=== PATIENT | female | born 1955 | race Caucasian/White ===

== ENCOUNTER 2018-03-28 09:54 | Emergency (ER) | payer MEDICARE, SELFPAY | END 2018-03-28 09:55 | PROVIDERS: Emergency Provider Student in an Organized Health Care Education/Training Program; Visit Provider Student in an Organized Health Care Education/Training Program | DX: Z53.29 Procedure and treatment not carried out because of patient's decision for other reasons (principal) ==

== ENCOUNTER 2018-04-03 08:08 | Outpatient (CLI) | payer MEDICARE, SELFPAY ==
--- NOTE | 2018-04-03 08:17 | DI.REPORT_ITS ---
SYMPTOM/DIAGNOSIS: CLOSED FX PROXIMAL PHALANX TOE, S92.911A RIGHT FOOT: Comparison is made with 18 March 2018. There has been no significant change in the previously noted fracture of the proximal phalanx of the 5th toe.
== END 2018-04-03 08:09 ==
PROVIDERS: Visit Provider Podiatrist Foot & Ankle Surgery
DX: S92.911D Unspecified fracture of right toe(s), subsequent encounter for fracture with routine healing (principal)
CPT/HCPCS: 73630

== ENCOUNTER 2019-10-23 14:21 | Outpatient (CLI) | payer MEDICARE, SELFPAY ==
[2019-10-23 17:00] LABS: TSH 1.04 uIU/mL (0.36-3.74)
== END 2019-10-23 14:41 ==
PROVIDERS: Visit Provider Family Medicine
DX: I10 Essential (primary) hypertension (principal)
CPT/HCPCS: 36415; 80048; 84443

== ENCOUNTER 2021-09-24 23:33 | Emergency (ER) | payer MEDICARE, SELFPAY ==
[2021-09-24 23:43] VITALS: BP 144/78; PULSE 73; RESP 16; TEMP 36.5; O2SAT 97
--- NOTE | 2021-09-24 23:45 | DI.RAD_ITS ---
Exam(s) XR FOOT LT COMPLETE EXAM: XR FOOT LT COMPLETE CLINICAL HISTORY: tenderness over 1st and 2nd metatarsals. TECHNIQUE: 2D digital imaging was performed. COMPARISON: No exams were available for comparison FINDINGS: No evidence of fracture or diastasis of the Lisfranc joint. Bone density is normal. No osseous lesi ons nor erosions. Soft tissue swelling is seen dorsally over the metatarsals but no fractures eviden t at this time. IMPRESSION: No fracture. No radiopaque foreign body. DATA REPOSITORY: RADIATION DOSE DELIVERED:
[2021-09-25] MEDS: Acetaminophen 500 MG TAB 1000 MG PO
--- NOTE | 2021-09-25 00:11 | DI.VRAD_ITS ---
PROCEDURE INFORMATION: Exam: XR Left Foot Exam date and time: 09/24/2021 11:49 PM Age: 66 years old Clinical indication: Pain; Foot; Left; Patient HX: Tenderness over 1st and 2nd metatarsals after. Ran into table TECHNIQUE: Imaging protocol: XR Left foot. Views: 3 or more views. COMPARISON: No relevant prior studies available. FINDINGS: Bones/joints: No evidence of fracture. Negative for dislocation. Negative for bony erosion or destructive change. Soft tissues: Soft tissue swelling is noted in the forefoot. Negative for soft tissue air. No foreign bodies observed. IMPRESSION: No acute osseous abnormality. If symptoms persist, follow-up imaging advised. Dictated and Authenticated by: Joselito Stout MD. Ordering:EARLE Schuster MD
--- NOTE | 2021-09-25 00:12 | W.ED.GENAD ---
Discharge Plan Disposition Patient Disposition: HOME Condition: Good Discharge Details Clinical Impression: Contusion of foot, left Primary Care Provider: Henny Villatoro ED Provider: Landen Snider Home Meds and New Rx's Prescriptions: Continued gabapentin [Neurontin] 600 MG tablet 1,800 mg PO HS RF: 0 methylphenidate HCl [Ritalin] 20 MG tablet 20 mg PO TID RF: 0 metoprolol succinate 25 MG tablet extended release 24 hr 25 mg PO DAILY RF: 0 ferrous sulfate 325 MG tablet,delayed release (DR/EC) 325 mg PO DAILY RF: 0 multivitamin 1 EACH capsule 1 ea PO DAILY RF: 0 vitamin B complex 1 EACH capsule 1 ea PO DAILY RF: 0 pramipexole 1 MG tablet 2 mg PO HS RF: 0 escitalopram oxalate [Lexapro] 20 MG tablet 20 mg PO DAILY RF: 0 metformin 500 MG tablet 500 mg PO BID RF: 0 modafinil [Provigil] 200 MG tablet 300 mg PO DAILY RF: 0 albuterol sulfate [Ventolin HFA] 8 GM HFA aerosol inhaler 2 puff Inhalation Q4H PRN PRNRF: 0 fluticasone propionate 16 GM spray,suspension 1 spray NS DAILY RF: 0 cholecalciferol (vitamin D3) 5,000 UNIT capsule 5,000 unit PO DAILY RF: 0 aripiprazole [Abilify] 30 MG tablet 30 mg PO HS RF: 0 calcium citrate-vitamin D3 [Citracal + D Maximum] 1 EACH tablet 1 ea PO TID RF: 0 Cyanocobalamin (Vitamin B-12) [Vitamin B-12] 1,000 MCG Capsule 1,000 mcg PO DAILY RF: 0 lorazepam 1 MG tablet 1 mg PO HS PRN PRNRF: 0 Discharge Instructions Instructions: Foot Contusion (ED) Additional Instructions: At this time the x-ray shows no evidence of fracture. You do have a notable contusion on your foot though. Please keep it elevated, apply ice throughout the day. Take Tylenol as needed for pain. Use the crutches to stay off your foot for the next 2 to 3 days then gradually add pressure as needed. If your symptoms persist for more than 1 to 2 weeks you may require repeat imaging or evaluation of the foot itself. If you notice any worsening of your symptoms, or any new symptoms such as vomiting, diarrhea, fever, chills, shortness of breath, chest pain, numbness, weakness, or fainting , please return immediately to the emergency department for reevaluation. Please follow up with your primary care provider as soon as possible for reassessment and reevaluation. As always, it was a pleasure participating in your medical care today. Referrals: Henny Villatoro [Primary Care Provider] - Medical Decision Making This is a 66-year-old female with a past medical history of diabetes, gastric bypass, asthma, who presents today for evaluation of left foot pain. In the last hour the patient was walking through the dark house and hit her foot on furniture. Significant pain on the dorsum of her foot. She came in for further assessment. She admits to pain with ambulation and movement. She denies any numbness or tingling. She denies any other trauma. No other complaints at this time. Having for mid physical exam demonstrates mild swelling over the dorsum of the left foot primarily over the first and second metatarsal. No numbness or tingling. No deformity. Suspect bruise and contusion, with fracture less likely. Will get x-ray, give Tylenol, monitor closely and reassess. 12:23 AM Imaging has been read as negative per virtual radiology. No evidence of acute fracture. At this time I feel that the patient stable for discharge. We will give crutches and walking boot for notable contusion. Recommend Tylenol, ice, and reevaluation if symptoms persist greater than 1 to 2 weeks. At this time patient is stable for discharge. Discussed red flags for which to return. I have extensively reviewed the treatment plan and discharge instructions with the patient. I have addressed all patient concerns at this time. The patient was made aware of what symptoms to monitor for that would warrant a return to the emergency department. Discussed the plan with the patient, they demonstrate verbal understanding and agreement with our assessment and plan at this time. The documentation in this chart was dictated using [employer] dictation software. Please excuse any dictation errors. FINDINGS: Bones/joints: No evidence of fracture. Negative for dislocation. Negative for bony erosion or destructive change. Soft tissues: Soft tissue swelling is noted in the forefoot. Negative for soft tissue air. No foreign bodies observed. IMPRESSION: No acute osseous abnormality. If symptoms persist, follow-up imaging advised. Thank you for allowing us to participate in the care of your patient. Dictated and Authenticated by: Joselito Stout MD 09/25/2021 12:10 AM Eastern Time ([place] & [place]) HPI General Date/Time Provider Initiated Documentation: 09/24/21 23:46. HPI Narrative: This is a 66-year-old female with a past medical history of diabetes, gastric bypass, asthma, who presents today for evaluation of left foot pain. In the last hour the patient was walking through the dark house and hit her foot on furniture. Significant pain on the dorsum of her foot. She came in for further assessment. She admits to pain with ambulation and movement. She denies any numbness or tingling. She denies any other trauma. No other complaints at this time. Related Data Home Medications Medication Instructions Recorded Confirmed ferrous sulfate 325 mg PO DAILY 04/21/13 03/19/18 gabapentin [Neurontin] 1,800 mg PO HS 04/21/13 03/19/18 methylphenidate HCl [Ritalin] 20 mg PO TID 04/21/13 03/19/18 metoprolol succinate 25 mg PO DAILY 04/21/13 03/19/18 multivitamin 1 ea PO DAILY 04/21/13 03/19/18 vitamin B complex 1 ea PO DAILY 04/21/13 03/19/18 pramipexole 2 mg PO HS 09/06/14 03/19/18 escitalopram oxalate [Lexapro] 20 mg PO DAILY 02/21/16 03/19/18 Cyanocobalamin (Vitamin B-12) 1,000 mcg PO DAILY 08/22/17 03/19/18 [Vitamin B-12] albuterol sulfate [Ventolin HFA] 2 puff INHALATION Q4H PRN PRN 08/22/17 03/19/18 aripiprazole [Abilify] 30 mg PO HS 08/22/17 03/19/18 calcium citrate-vitamin D3 1 ea PO TID 08/22/17 03/19/18 [Citracal + D Maximum] cholecalciferol (vitamin D3) 5,000 unit PO DAILY 08/22/17 03/19/18 fluticasone propionate 1 spray NS DAILY 08/22/17 03/19/18 metformin 500 mg PO BID 08/22/17 03/19/18 modafinil [Provigil] 300 mg PO DAILY 08/22/17 03/19/18 lorazepam 1 mg PO HS PRN PRN 03/18/18 03/19/18 Allergies Allergy/AdvReac Type Severity Reaction Status Date / Time No Known Allergies Allergy Unverified 09/24/21 23:48 General Stated Complaint: Orthopedic NIKOLAY: 4 Review of Systems All systems reviewed & are unremarkable except as noted in HPI and below PFSH All Active Problems (Updated 09/25/21 @ 00:24 by Landen Snider DO) Contusion of foot, left (Acute) Social History Smoking/Tobacco Use Status: Never Smoking risk assessment performed?: Yes Drug use: Never Do you feel safe in your relationship?: Yes Exam Narrative Exam Narrative: 1.Const: Well-nourished, Well-developed, appearing stated age 2.Eyes: PERRL, no conjunctival injection, and symmetrical lids. 3.ENT: Atraumatic external nose and ears. Moist MM. Neck: Symmetric, trachea midline, No thyromegaly. 4.CVS: +S1/S2, No murmurs or gallops. Peripheral pulses 2+ and equal in all extremities. Brisk capillary refill in all extremities. 5.RESP: Unlabored respiratory effort. Clear to auscultation bilaterally. No wheezes rales or rhonchi 6.GI: Soft, Nontender/Nondistended, No hepatosplenomegaly. No guarding or rebound. 7.MSK: Left foot demonstrates mild swelling over the dorsum of the foot, particularly over the first and second metatarsals. Patient is able to flex and extend her toes well. Good sensation throughout. No tenderness over the ankle or lateral metatarsals. Mild evidence of bruising. No warmth to suggest infection. No crepitus to suggest necrotizing fasciitis. 8.Skin: Warm, Dry. No rashes or lesions. 9.Neuro: patient registrar II-XII grossly intact. Sensation grossly intact, no focal neurologic deficits. 10.Psych: (AAO) x3. Appropriate mood and affect Course Vital Signs Vital signs: Vital Signs Temperature 36.5 C 09/24/21 23:43 Pulse 73 09/24/21 23:43 Respiratory Rate 16 09/24/21 23:43 Blood Pressure 144/78 H 09/24/21 23:43 Pulse Oximetry 97 09/24/21 23:43 Temperature 36.5 C 09/24/21 23:43 Temperature Source Oral 09/24/21 23:43 Pulse 73 09/24/21 23:43 Respiratory Rate 16 09/24/21 23:43 Blood Pressure 144/78 H 09/24/21 23:43 Blood Pressure Position Sitting 09/24/21 23:43 Pulse Oximetry 97 09/24/21 23:43 Oxygen Delivery Method Room Air 09/24/21 23:43 Oxygen Flow Rate 0 09/24/21 23:43 Pain Level 8 09/24/21 23:43
== END 2021-09-25 00:41 | disposition home or self-care (01) ==
PROVIDERS: Emergency Provider Student in an Organized Health Care Education/Training Program; PCP Family Medicine
DX: S90.32XA Contusion of left foot, initial encounter (principal); W22.03XA Walked into furniture, initial encounter
CPT/HCPCS: 99283; 73630

== ENCOUNTER → 2021-11-30 14:05 | Outpatient (CLI) | payer MEDICARE, SELFPAY ==
--- NOTE | 2021-11-30 14:15 | DI.RAD_ITS ---
Exam(s) XR KNEE LT 3V AP,LAT,JAMAL EXAM: XR KNEE LT 3V AP,LAT,JAMAL CLINICAL HISTORY: LEFT KNEE PAIN M25.562 ? LIGAMENTOUS INJURY AND TIBIAL PLATEAU FX. TECHNIQUE: 2D digital imaging was performed. Three views. COMPARISON: No exams were available for comparison FINDINGS: BONES: No acute fracture is present. No bony destructive lesion is seen. JOINTS: There is spurring at the medial femoral condyle and medial tibial plateau as well as tibial s pines. There is mild spurring at the articular aspect of the patella. A small enthesophyte is seen on at the quadriceps insertion.. No joint effusion is seen. SOFT TISSUE: Normal. IMPRESSION: Degenerative changes greatest of the medial femoral tibial joint. No acute abnormality. DATA REPOSITORY: RADIATION DOSE DELIVERED:
--- NOTE | 2021-11-30 14:15 | DI.RAD_ITS ---
Exam(s) XR FOOT LT COMPLETE EXAM: XR FOOT LT COMPLETE CLINICAL HISTORY: PAIN LEFT FOOT M79.672 EVALUATE FOR LISFRANC INJURY. TECHNIQUE: 2D digital imaging was performed. COMPARISON: CR RIGHT FOOT COMPLETE from 04/03/2018 CR,XR XR FOOT LT COMPLETE from 09/25/2021 FINDINGS: BONES: There is a nondisplaced fracture extending transversely through the base of the 4th metatarsal . It does not extend to the articular surface. Which shows some healing when compared the previous exam. No additional fractures are seen. No bony destructive lesion is seen. JOINTS: No dislocation present. SOFT TISSUE: Dorsal soft tissue swelling. IMPRESSION: Subacute nondisplaced fracture at the base of the 4th metatarsal. DATA REPOSITORY: RADIATION DOSE DELIVERED:
== END ==
PROVIDERS: PCP Family Medicine; Visit Provider Physician Assistant Medical
DX: M79.672 Pain in left foot (principal); M25.562 Pain in left knee; M17.12 Unilateral primary osteoarthritis, left knee; S92.345A Nondisplaced fracture of fourth metatarsal bone, left foot, initial encounter for closed fracture; X58.XXXA Exposure to other specified factors, initial encounter
CPT/HCPCS: 73562; 73630

== ENCOUNTER 2021-12-15 00:03 | Outpatient (CLI) | payer MEDICARE, SELFPAY ==
--- NOTE | 2021-12-15 | DI.MRI_ITS ---
Exam(s) MR LOWER JOINT LT WO EXAM: MR LOWER JOINT LT WO CLINICAL HISTORY: OSTEOARTHRITIS LT KNEE, M17.12, LT KNEE PAIN, M25.562. TECHNIQUE: Multiplanar multisequence MRI was performed. COMPARISON: CR XR KNEE LT 3V AP,LAT,JAMAL from 11/30/2021 FINDINGS: BONES: There is no fracture or contusion pattern. JOINTS: Marked degenerative changes are seen in the medial femoral tibial joint with loss of the dipti cular cartilage, periarticular spurring and subchondral edema and cysts. There is thinning of the ar ticular cartilage at the inferior aspect of the patella. There is a small joint effusion. TENDONS: Extensor mechanism: Unremarkable. Medial retinaculum: Unremarkable. Lateral retinaculum: Unremarkable. Popliteus: Unremarkable. MUSCLES: Unremarkable. MENISCI: There is degeneration seen in the body of the medial meniscus. There is a tear of the poste rior horn of the medial meniscus. The lateral meniscus is unremarkable. SOFT TISSUES: Unremarkable. LIGAMENTS: Anterior Cruciate: Unremarkable. Posterior Cruciate: Unremarkable. Medial Collateral:Unremarkable. Lateral Collateral: There does appear to be a sprain of the lateral collateral ligament. OTHER: There is a small popliteal cyst. IMPRESSION: 1. Tear of the posterior horn of the medial meniscus. 2. Sprain of the lateral collateral ligament. 3. Degenerative changes predominantly involving the medial femoral tibial joint. 4. Small joint effusion. DATA REPOSITORY:
== END 2021-12-15 00:23 ==
PROVIDERS: PCP Family Medicine; Visit Provider Nurse Practitioner Family
DX: M25.562 Pain in left knee (principal); M17.12 Unilateral primary osteoarthritis, left knee; M25.462 Effusion, left knee; S83.242A Other tear of medial meniscus, current injury, left knee, initial encounter; S83.422A Sprain of lateral collateral ligament of left knee, initial encounter
CPT/HCPCS: 73721

== ENCOUNTER → 2021-12-28 14:16 | Outpatient (BNVA) | payer MEDICARE, SELFPAY | PROVIDERS: PCP Family Medicine; Referring Provider Family Medicine; Visit Provider Physician Assistant | DX: M17.12 Unilateral primary osteoarthritis, left knee (principal); S83.242A Other tear of medial meniscus, current injury, left knee, initial encounter; X58.XXXA Exposure to other specified factors, initial encounter | CPT/HCPCS: 99214 ==

== ENCOUNTER → 2022-02-05 14:06 | Outpatient (BNVA) | payer MEDICARE, SELFPAY | PROVIDERS: PCP Family Medicine; Referring Provider Family Medicine; Visit Provider Student in an Organized Health Care Education/Training Program | DX: S93.325A Dislocation of tarsometatarsal joint of left foot, initial encounter (principal); X58.XXXA Exposure to other specified factors, initial encounter | CPT/HCPCS: 99214 ==

== ENCOUNTER 2022-11-01 15:23 | Outpatient (REF) | payer MEDICARE, SELFPAY ==
[2022-11-01 14:16] LABS: ALT 42 U/L (14-59); AST 28 U/L (15-37); Albumin 4.3 g/dL (3.4-5.0); Alkaline Phosphatase 68 U/L (46-116); Anion Gap 9.9 mmol/L (3-11); BUN 14 mg/dL (7-18); Bilirubin, Total 0.4 mg/dL (0.2-1.0); CO2 27.1 mmol/L (21.0-32.0); CREATININE 0.7 mg/dL (0.55-1.02); Calcium 8.7 mg/dL (8.5-10.1); Chloride 104 mmol/L (98-107); Estimated GFR 94.73 (mL/min/1.73m2); Glucose 118 mg/dL (74-106); Potassium 4.1 mmol/L (3.5-5.1); Sodium 141 mmol/L (136-145)
== END 2022-11-01 15:24 | disposition home or self-care (01) ==
LOC: LBN 15:23
PROVIDERS: PCP Family Medicine; Visit Provider Nurse Practitioner Family
DX: U07.1 COVID-19 (principal)
CPT/HCPCS: 80053

== ENCOUNTER 2024-02-10 13:53 | Outpatient (REF) | payer MEDICARE, SELFPAY ==
[2024-02-10 14:35] LABS: Source Nasal/Nares
[2024-02-10 15:44] LABS: COVID-19 PCR Negative (Negative)
== END 2024-02-10 13:54 | disposition home or self-care (01) ==
LOC: LBN 13:53
PROVIDERS: PCP Family Medicine; Visit Provider Nurse Practitioner Family
DX: J06.9 Acute upper respiratory infection, unspecified (principal)
CPT/HCPCS: 87635

== ENCOUNTER 2024-09-14 13:26 | Outpatient (CLI) | payer MEDICARE, SELFPAY ==
--- NOTE | 2024-09-14 13:14 | DI.RAD_ITS ---
Exam(s) XR CHEST 2V PA LATERAL EXAM: XR CHEST 2V PA LATERAL CLINICAL HISTORY: Cough, R05.9 TECHNIQUE: 2D digital imaging was performed. Two views. COMPARISON: No exams were available for comparison FINDINGS: HEART: Normal size. Aorta: Not dilated. PULMONARY VASCULATURE: Normal. MEDIASTINUM: Unremarkable. LUNGS: Clear. PLEURAL SPACE: No pleural effusion or pneumothorax. BONE:Mild scoliosis at the thoracolumbar junction. SOFT TISSUES: Breast implants. IMPRESSION: No acute abnormality. DATA REPOSITORY: RADIATION DOSE DELIVERED:
== END 2024-09-14 13:46 ==
LOC: DI 13:26
PROVIDERS: PCP Family Medicine; Visit Provider Nurse Practitioner Family
DX: R05.9 Cough, unspecified (principal)
CPT/HCPCS: 71046